=== PATIENT | male | born 1990 | race Caucasian/White ===

== ENCOUNTER → 2017-01-02 | Outpatient (CLI) | payer BC ==
[~2017-01-02] MED LIST: ALBUAER19 INH; LEVO50TA6 PO; LEVO75TA5 PO; MULT-513 PO; OXYC7.5T65 PO
== END | disposition home or self-care (01) ==
LOC: C.LABSPEC 17:04
PROVIDERS: ATTEND Urology
DX: N43.3 Hydrocele, unspecified (principal)

== ENCOUNTER → 2017-01-10 | Outpatient (CLI) | payer BC ==
[~2017-01-10] MED LIST changes: -LEVO50TA6 PO
--- NOTE | 2017-01-10 08:19 | DIAGNOSTIC IMAGING REPORT ---
TESTICULAR ULTRASOUND HISTORY: Left-sided HYDROCELE. Preop. COMPARISON: None. FINDINGS: Right testis: 4.8 x 2.7 x 2.1 cm. There are no intratesticular masses. Normal color flow. No hydrocele. The epididymis is unremarkable. Left testis: 4.5 x 2.9 x 2.5 cm. There are no intratesticular masses. Normal color flow. There is a large hydrocele with a septation. This demonstrates 252 cc of fluid. A 4 mm epididymal head cyst. There is a punctate scrotolith. IMPRESSION: Large left hydrocele containing a septation. Electronically signed by: Jay Jacobo M.D. 01/10/2017 8:18 AM Dictated Date/Time: 01/10/2017 8:15 AM
== END | disposition home or self-care (01) ==
LOC: C.ULTR 07:33
PROVIDERS: ATTEND Urology
DX: N43.3 Hydrocele, unspecified (principal)

== ENCOUNTER → 2017-01-24 | Day surgery (SDC) | payer BC ==
[2017-01-06 14:45] VITALS: BMI 39.0
[~2017-01-24] VITALS: Ht 167.6 cm; Wt 109.1 kg
[~2017-01-24] MED LIST changes: +ATROPINE SULFATE 0.1 MG/ML 5ML SYR IV PRN; +BACITRACIN OINT 15 GM TUBE ONE; +BUPIVACAINE 0.25% 30 ML VIAL ONE; +CEFAZOLIN 2000 MG/60 ML D5W IV SCH; +CEFAZOLIN SOD 1 GM VIAL ONE; +DEXAMETHASONE SOD INJ 4 MG/ML VIAL ONE; +EpHEDrine SULFATE INJ 50 MG/ML AMP IV PRN; +FENTANYL CITRATE INJ 50 MCG/1 ML 2 ML VIAL ONE; +GLYCOPYRROLATE INJ 0.2 MG/ML VIAL ONE; +HYDROmorphone INJ 1 MG/ML SYR IV PRN; +LACTATED RINGER'S 1000ML 1,000 ML IV SCH; +LARYING-O-JET KIT (LTA) ONE; +LIDOCAINE HCL 1% 20 ML VIAL ONE; +LIDOCAINE HCL 2% 2 ML VIAL (20MG/ML) ONE; +MIDAZOLAM HCL 1 MG/ML 2ML VIAL ONE; +NEOSTIGMINE METHYLSULFATE 5 MG/5 ML SYR ONE; +NURSING VERBAL MED ORDER ONE; +ONDANSETRON INJ 2 MG/ML 2 ML VIAL IV PRN; +ONDANSETRON INJ 2 MG/ML 2 ML VIAL ONE; +OXYCODONE/ACETAMINOPHEN 7.5-325 TAB ONE; +PROPOFOL IV EMULSION 10 MG/ML 20 ML VIAL IV ONE; +ROCURONIUM BROMIDE 10 MG/ML 5 ML VIAL IV ONE; +SODIUM CHLORIDE 0.9% INJ 10 ML VIAL ONE; +SUCCINYLCHOLINE CHLORIDE 20 MG/ML 10 ML VIAL IV ONE
--- NOTE | 2017-01-24 08:48 | History & Physical Bridge Note ---
H&P Re-Evaluation Bridge Note: I have examined the patient, reviewed the History & Physical and in the interval since the performance of the History & Physical I have noted the following changes of clinical significance: LEFT hydrocelectomy
[2017-01-24 08:50] VITALS: BP 159/88; PULSE 72; TEMP 37.2; O2SAT 99; Ht 167.6 cm; Wt 109.1 kg
[2017-01-24] MEDS: FENTANYL CITRATE INJ 50 MCG/1 ML 2 ML VIAL IV PRN ×3 (13:02→13:16)
--- NOTE | 2017-01-24 13:05 | [facility] Operative Report ---
Operative Report Operative Date Jan 24, 2017. Pre-Operative Diagnosis Left Scrotal Hydrocele Post-Operative Diagnosis Left Scrotal Hydrocele Procedure(s) Performed Left Scrotal Hydrocelectomy Surgeon Quintin Hvac Refrigeration Technician Surgeon(s) None Estimated Blood Loss 10cc Findings Large left hydrocele with scrotoliths Specimens A: Hydrocele Sac Drains None Anesthesia General Complication(s) None Disposition Recovery Room / PACU Indications Large hydrocele that was worsening and caused significant bother. Size interrupted voiding and intercourse. Long conversations about risks and benefits and options. Patient elected to proceed. Description of Procedure Patient was consented and brought back to the operating room. Patient was placed under anesthesia in the supine position. Patient was prepped and draped in the regular sterile fashion. A time out was completed. With the time out completed the midline scrotal raphe was marked and anesthetized with local lidocaine/Marcaine. The hydrocele was isolated and a 15 blade scapel was utilized to open the skin. The subcutaneous tissues and dartos fascia were then opened with electrobovie cautery. All bleeding was controlled. The testicle was delivered out of the scrotum and the hydrocele inspected. Great care was taken to identify the cord structures and vas deferens. The hydrocele sac was then opened and fluid drained. The testicle was delivered and Metzenbaum scissors were used to open the sac. Bovie was utilized to dissect the sac. This was sent for pathologic analysis. A Hydrocele stone was identified and sent with pathologic specimen. The edges of the hydrocele sac were then assessed as well as the testicle and the cord structures. The Testicular appendix was ablated. The sac was then sutured behind the testicle with a running chromic suture. All bleeding was controlled. A cord block was completed with 12 cc of 50/50 lidocaine and marcaine solution. The testicle appeared viable and all bleeding was controlled. The testicle was then delivered into the scrotum and the area was irrigated. The dartos tissue was then closed with a running vicryl suture. The subcutaneous tissues where then closed with a running vicryl suture. The skin was closed with a running monocryl suture. The area was then cleaned. Skin adhesive was then placed. Scrotal support was applied. The patient was cleaned, aroused from anesthesia, and transferred to the pacu in stable condition having tolerated the procedure well with no complications. I was present and participated in all aspects of the procedure. The patient will be monitored in the PACU until transferred. I attest to the content of the Intraoperative Record and any orders documented therein. Any exceptions are noted below.
--- NOTE | 2017-01-24 13:11 | Discharge Instructions ---
Discharge Instructions Date of Service Jan 24, 2017. Admission Reason for Admission: Hydrocele Discharge Discharge Diagnosis / Problem: Hydrocele Left Discharge Goals Goal(s): Decrease discomfort, Improve function Activity Recommendations Activity Limitations: per Instructions/Follow-up section Lifting Limitations: no more than 25 pounds Exercise/Sports Limitations: gradually increase as tolerated May Resume Sexual Activity: after two weeks Shower/Bathe: tomorrow Driving or Machine Use: no limitations . Instructions / Follow-Up Instructions / Follow-Up May have discomfort. Okay to shower in AM. Wash 2-3 times daily with warm soapy water. Do not scrub. No hot tubs or baths or swimming. Recommend scrotal support when ambulating and when laying and sitting. Okay to use ice 20 mins on and 20 mins off as needed for discomfort. Narcotic pain medication as need. Okay to use NSAIDs as well for pain control but do not take additional Tylenol if using prescription medication. Avoid heavy lifting and over activity. Slowing increase activity. Okay to resume diet. Monitor for swelling or increase pain and redness. Call if any concerns. Monitor for fevers or chills. Current Hospital Diet Hospital Diet(s): Regular Diet Discharge Diet Recommended Diet: Regular Diet Procedures Procedures Performed: Left Scrotal Hydrocelectomy Pending Studies Studies pending at discharge: no Medical Emergencies . Who to Call and When: Medical Emergencies: If at any time you feel your situation is an emergency, please call 911 immediately. . Non-Emergent Contact Non-Emergency issues call your: Primary Care Provider, Urologist Call Non-Emergent contact if: you have a fever, temperature is above 101.5, your pain is not controlled, your pain is worsening, wound has increased redness , wound has increased pain . . "Provider Documentation" section prepared by Cortez Ribeiro,. . VTE Core Measure Inpt VTE Proph given/why not?: Jose Jain, SCD's
--- NOTE | 2017-01-24 13:40 | Anesthesiology Progress Note ---
Anesthesia Post Op Note Date & Time Jan 24, 2017 at 13:40 Vital Signs Pain Intensity: 2 Vital Signs Past 12 Hours Date Time Temp Pulse Resp B/P (MAP) Pulse Ox O2 Delivery O2 Flow Rate FiO2 01/24/17 13:35 36.6 81 20 114/72 94 Room Air 01/24/17 13:25 36.6 81 20 116/68 94 Room Air 01/24/17 13:15 78 20 128/78 93 Room Air 01/24/17 13:05 69 20 122/79 98 Oxymask 10 01/24/17 12:55 77 20 121/81 97 Oxymask 10 01/24/17 12:46 36.2 80 20 118/90 98 Oxymask 10 01/24/17 08:50 37.2 72 18 159/88 (111) 99 Room Air Notes Mental Status: alert / awake / arousable, participated in evaluation Pt Amnestic to Procedure: Yes Nausea / Vomiting: adequately controlled Pain: adequately controlled Airway Patency, RR, SpO2: stable & adequate BP & HR: stable & adequate Hydration State: stable & adequate Anesthetic Complications: no major complications apparent
[2017-01-24 14:50] VITALS: BP 115/79; PULSE 80; TEMP 37.2; O2SAT 95
--- NOTE | 2017-01-26 11:14 | EDITING REQUIRED CODING QUERY ---
CODING CLARIFICATION Clarification is needed for coding purposes regarding the hydrocelectomy: Please provide further clarification regarding location: ( X ) Tunica Vaginalis ( ) Spermatic cord ( ) Other, please clarify: Non-communicating hydrocele surrounding the testicle without spermatic cord involvement. Thank you for your assistance, Tressa Gould - Filler Room Attendant
== END | disposition home or self-care (01) ==
LOC: C.ACU 08:26
PROVIDERS: ATTEND Urology
DX: N43.3 Hydrocele, unspecified (principal); Z83.3 Family history of diabetes mellitus; Z80.1 Family history of malignant neoplasm of trachea, bronchus and lung